=== PATIENT | female | born 1995 | race Caucasian/White ===

== ENCOUNTER 2019-10-04 15:35 | Emergency (ER) | payer OTHER, BC ==
--- NOTE | 2019-10-04 16:08 | EDM.PDOC ---
ED HPI GENERAL MEDICAL PROBLEM - General Chief Complaint: Lower Extremity Injury/Pain Stated Complaint: FOOT PAIN Time Seen by Provider: 10/04/19 15:42 Source of Information: Reports: Patient History Limitations: Reports: No Limitations - History of Present Illness INITIAL COMMENTS - FREE TEXT/NARRATIVE: HISTORY AND PHYSICAL: History of present illness: Patient is a 24-year-old female who presents to the ED today with concern of right foot pain over the past several days. Patient states she did not injure the foot and she cannot think of what would cause the pain. Patient states the pain is worse initially in the morning right when she stands on her feet and feels as if the arch of her foot is painful. Patient denies any trauma or injury to the foot. Patient denies any other symptoms or concerns. Patient denies fever, chills, chest pain, shortness of breath, or cough. Denies headache, neck stiff ness, change in vision, syncope, or near syncope. Denies nausea, vomiting, abdominal pain, diarrhea, constipation, or dysuria. Has not noted any blood in urine or stool. Patient has been eating and drinking appropriately. Review of systems: As per history of present illness and below otherwise all systems reviewed and negative. Past medical history: As per history of present illness and as reviewed below otherwise noncontributory. Surgical history: As per history of present illness and as reviewed below otherwise noncontributory. Social history: See social history for further information Family history: As per history of present illness and as reviewed below otherwise noncontributory. Physical exam: General: Patient is alert, oriented, and in no acute distress. Patient sitting comfortably on exam table. HEENT: Atraumatic, normocephalic, pupils equal and reactive bilaterally, negative for conjunctival pallor or scleral icterus, mucous membranes moist, TMs normal bilaterally, throat clear, neck supple, nontender, trachea midline. No drooling or trismus noted. No meningeal signs. No hot potato voice noted. Lungs: Clear to auscultation, breath sounds equal bilaterally, chest nontender. Heart: S1S2, regular rate and rhythm without overt murmur Abdomen: Soft, nondistended, nontender. Negative for masses or hepatosplenomegaly. Negative for costovertebral tenderness. Pelvis: Stable nontender. Genitourinary: Deferred. Rectal: Deferred. Skin: Intact, warm, dry. No lesions or rashes noted. Extremities: Atraumatic, negative for cords or calf pain. Neurovascular unremarkable. Patient has full range of motion of complete bilateral lower extremities without pain or difficulty. Patient does have direct pain to palpation of the right plantar fascia with recreation of symptoms. DP/PT intact bilaterally with capillary refill <2 seconds. No erythema or edema of bilateral lower extremities. Neuro: Awake, alert, oriented. Cranial nerves II through XII unremarkable. Cerebellum unremarkable. Motor and sensory unremarkable throughout. Exam nonfocal. Notes: Discussed importance for follow-up with a primary care provider. Voices understanding and is agreeable to plan of care. Denies any further questions or concerns at this time. Diagnostics: Foot XR Therapeutics: None Prescription: None Impression: Plantars fasciitis, right Plan: 1. Rest, ice, elevate the affected extremity. You can apply ice 15 minutes on, 15 minutes off. 2. Tylenol and/or Ibuprofen as directed for pain management or discomfort. 3. Follow up with the primary care provider as discussed. Return to the ED as needed and as discussed. Definitive disposition and diagnosis as appropriate pending reevaluation and review of above. Right Foot Pain Score (Numeric/FACES): 8 - Related Data Allergies Allergy/AdvReac Type Severity Reaction Status Date / Time No Known Allergies Allergy Verified 10/04/19 15:50 Home Meds: Home Meds . [No Known Home Meds] 10/04/19 [History] Past Medical History - Past Health History Medical/Surgical History: Denies Medical/Surgical History - Infectious Disease History Infectious Disease History: Reports: Chicken Pox Social & Family History - Family History Family Medical History: Noncontributory - Tobacco Use Smoking Status *Q: Never Smoker - Caffeine Use Caffeine Use: Reports: Coffee - Recreational Drug Use Recreational Drug Use: No Review of Systems - Review of Systems Review Of Systems: Comprehensive ROS is negative, except as noted in HPI. ED EXAM, GENERAL - Physical Exam Exam: See Below (see dictation) Course - Vital Signs Last Recorded V/S: Last Vital Signs Temp 97.1 F 10/04/19 15:51 Pulse 107 H 10/04/19 15:51 Resp 17 10/04/19 15:51 BP 143/77 H 10/04/19 15:51 Pulse Ox 99 10/04/19 15:51 Departure - Departure Time of Disposition: 16:58 Disposition: Home, Self-Care 01 Clinical Impression: Plantar fasciitis of right foot - Discharge Information Referrals: PCP,None [Primary Care Provider] - Forms: ED Department Discharge Additional Instructions: The following information is given to patients seen in the emergency department who are being discharged to home. This information is to outline your options for follow-up care. We provide all patients seen in our emergency department with a follow-up referral. The need for follow-up, as well as the timing and circumstances, are variable depending upon the specifics of your emergency department visit. If you don't have a primary care physician on staff, we will provide you with a referral. We always advise you to contact your personal physician following an emergency department visit to inform them of the circumstance of the visit and for follow-up with them and/or the need for any referrals to a consulting specialist. The emergency department will also refer you to a specialist when appropriate. This referral assures that you have the opportunity for follow-up care with a specialist. All of these measure are taken in an effort to provide you with optimal care, which includes your follow-up. Under all circumstances we always encourage you to contact your private physician who remains a resource for coordinating your care. When calling for follow-up care, please make the office aware that this follow-up is from your recent emergency room visit. If for any reason you are refused follow-up, please contact the [facility] Emergency Department at and asked to speak to the emergency department charge nurse. [facility] [address] [place] [id number] [address] 1. Rest, ice, elevate the affected extremity. You can apply ice 15 minutes on, 15 minutes off. 2. Tylenol and/or Ibuprofen as directed for pain management or discomfort. 3. Follow up with the primary care provider as discussed. Return to the ED as needed and as discussed. Sepsis Event Note - Evaluation Sepsis Screening Result: No Definite Risk - Focused Exam Vital Signs: Vital Signs Temp Pulse Resp BP Pulse Ox 10/04/19 15:51 97.1 F 107 H 17 143/77 H 99 Date Exam was Performed: 10/04/19 Time Exam was Performed: 16:58
--- NOTE | 2019-10-04 16:56 | CR ---
Right foot: 2 views of the right foot pain. Comparison: No previous foot exam. No discrete fracture or other bony abnormality is seen. Impression: 1. No abnormality is appreciated on 2 view right foot exam. Diagnostic code #1 This report was dictated in Mountain Standard Time
== END 2019-10-04 17:14 | disposition home or self-care (01) ==
LOC: MW.ED 15:35
DX: M72.2 Plantar fascial fibromatosis (principal)
CPT/HCPCS: 73620-26-RT; 73620-RT; 99283-25

== ENCOUNTER 2020-01-15 19:50 | Emergency (ER) | payer OTHER, BC ==
--- NOTE | 2020-01-15 20:21 | EDM.PDOC ---
ED HPI GENERAL MEDICAL PROBLEM - General Chief Complaint: CARDIOPULMONARY TECHNICIAN Problem Stated Complaint: BLEEDING Time Seen by Provider: 01/15/20 20:20 Source of Information: Reports: Patient History Limitations: Reports: No Limitations - History of Present Illness INITIAL COMMENTS - FREE TEXT/NARRATIVE: HISTORY AND PHYSICAL: History of present illness: Patient is a 24-year-old female presents to the ED with complaint of vaginal bleeding in . Patient is . LMP November 27, approximately 6-7 weeks gestation. She states bleeding started this afternoon around 5pm. She states she passed a couple of clots. Bleeding subsided until she just gave a urine sample and passed another clot. She reports some cramping period like pain. She does have her first OB appointment scheduled for this coming Tuesday. Review of systems: As per history of present illness and below otherwise all systems reviewed and negative. Past medical history: As per history of present illness and as reviewed below otherwise noncontributory. Surgical history: As per history of present illness and as reviewed below otherwise noncontributory. Social history: No reported history of drug or alcohol abuse. Family history: As per history of present illness and as reviewed below otherwise noncontributory. Physical exam: General: Patient sitting comfortably in no acute distress and nontoxic appearing HEENT: Atraumatic, normocephalic, pupils reactive, negative for conjunctival pallor or scleral icterus, mucous membranes moist, throat clear, neck supple, nontender, trachea midline. No meningeal signs. Lungs: Clear to auscultation, breath sounds equal bilaterally, chest nontender. Heart: S1S2, regular, negative for clicks, rubs, or overt murmur. Abdomen: Soft, nondistended, nontender. No point tenderness on exam. Negative for masses or hepatosplenomegaly. Negative for costovertebral tenderness. No rigidity, rebound, guarding. Pelvis: Stable nontender. Genitourinary: moderate amount of blood in the vaginal vault. Cervical OS is closed. No adnexal tenderness. Rectal: Deferred. Extremities: Atraumatic, negative for cords or calf pain. Neurovascular unremarkable. Neuro: Awake, alert, oriented. Cranial nerves II through XII unremarkable. Cerebellum unremarkable. Motor and sensory unremarkable throughout. Exam nonfocal. Notes: Signed out to Dr. Vidal at 2200 for follow up on ultrasound. Diagnostics: HCG quant, ABO/RH, CBC Therapeutics: none Prescriptions: Augmentin Impression: Threatened , UTI Plan: Pelvic rest as instructed Drink plenty of fluids and alternate tylenol and motrin as needed Follow up with CARDIOPULMONARY TECHNICIAN for repeat labs in 48 hours Return to ED as needed as discussed Definitive disposition and diagnosis as appropriate pending reevaluation and review of above. Lower Abdominal Pain Score (Numeric/FACES): 6 - Related Data Allergies Allergy/AdvReac Type Severity Reaction Status Date / Time No Known Allergies Allergy Verified 01/15/20 20:03 Home Meds: Home Meds . [No Known Home Meds] 10/04/19 [History] Past Medical History - Past Health History Medical/Surgical History: Denies Medical/Surgical History - Infectious Disease History Infectious Disease History: Reports: Chicken Pox Social & Family History - Family History Family Medical History: Noncontributory - Tobacco Use Smoking Status *Q: Never Smoker Second Hand Smoke Exposure: No - Caffeine Use Caffeine Use: Reports: None - Recreational Drug Use Recreational Drug Use: No ED ROS GENERAL - Review of Systems Review Of Systems: Comprehensive ROS is negative, except as noted in HPI. ED EXAM - Physical Exam Exam: See Below (see dictation) Course - Vital Signs Last Recorded V/S: Last Vital Signs Temp 97.8 F 01/15/20 19:57 Pulse 87 01/15/20 21:53 Resp 17 01/15/20 21:53 BP 136/78 01/15/20 21:53 Pulse Ox 99 01/15/20 21:53 - Orders/Labs/Meds Orders: Active Orders 24 hr Category Date Time Status OB 1st Tri Sgl 1st Gest [US] Stat Exams 01/15/20 21:35 Ordered ABO/RH TYPE [BBK] Stat Lab 01/15/20 20:20 Ordered CBC WITH AUTO DIFF [HEME] Stat Lab 01/15/20 20:20 Ordered HCG QUANTITATIVE [CHEM] Stat Lab 01/15/20 20:20 Ordered UA RFX TAO AND CULT IF INDIC [URIN] Stat Lab 01/15/20 20:11 Received Labs: Laboratory Tests 01/15/20 01/15/20 01/15/20 Range/Units 20:11 20:11 20:42 WBC 9.01 (4.0-11.0) K/uL RBC 4.39 (4.30-5.90) M/uL Hgb 13.4 (12.0-16.0) g/dL Hct 40.2 (36.0-46.0) % MCV 91.6 (80.0-98.0) fL MCH 30.5 (27.0-32.0) pg MCHC 33.3 (31.0-37.0) g/dL RDW Std Deviation 43.4 (28.0-62.0) fl RDW Coeff of Moncho 13 (11.0-15.0) % Plt Count 179 (150-400) K/uL MPV 9.80 (7.40-12.00) fL Neut % (Auto) 76.3 (48.0-80.0) % Lymph % (Auto) 17.5 (16.0-40.0) % Dodge % (Auto) 5.9 (0.0-15.0) % Eos % (Auto) 0.2 (0.0-7.0) % Baso % (Auto) 0.1 (0.0-1.5) % Neut # (Auto) 6.9 H (1.4-5.7) K/uL Lymph # (Auto) 1.6 (0.6-2.4) K/uL Dodge # (Auto) 0.5 (0.0-0.8) K/uL Eos # (Auto) 0.0 (0.0-0.7) K/uL Baso # (Auto) 0.0 (0.0-0.1) K/uL Nucleated RBC % 0.0 /100WBC Nucleated RBCs # 0 K/uL HCG, Quant mIU/mL Urine Color RED Urine Appearance SLT CLOUDY Urine pH 5.5 (5.0-8.0) Ur Specific [place] >= 1.030 (1.001-1.035) Urine Protein 30 H (NEGATIVE) mg/dL Urine Glucose (UA) NEGATIVE (NEGATIVE) mg/dL Urine Ketones NEGATIVE (NEGATIVE) mg/dL Urine Occult Blood LARGE H (NEGATIVE) Urine Nitrite POSITIVE H (NEGATIVE) Urine Bilirubin SMALL H (NEGATIVE) Urine Ictotest NEGATIVE Urine Urobilinogen 0.2 (<2.0) EU/dL Ur Leukocyte Esterase TRACE H (NEGATIVE) Urine RBC 450-500 (0-2/HPF) Urine WBC 2-3 (0-5/HPF) Ur Epithelial Cells NOT SEEN (NONE-FEW) Amorphous Sediment FEW (NEGATIVE) Urine Bacteria FEW (NEGATIVE) Urine Mucus FEW (NONE-MOD) Urine HCG, Qual POSITIVE (NEGATIVE) Blood Type 01/15/20 01/15/20 Range/Units 20:42 20:42 WBC (4.0-11.0) K/uL RBC (4.30-5.90) M/uL Hgb (12.0-16.0) g/dL Hct (36.0-46.0) % MCV (80.0-98.0) fL MCH (27.0-32.0) pg MCHC (31.0-37.0) g/dL RDW Std Deviation (28.0-62.0) fl RDW Coeff of Moncho (11.0-15.0) % Plt Count (150-400) K/uL MPV (7.40-12.00) fL Neut % (Auto) (48.0-80.0) % Lymph % (Auto) (16.0-40.0) % Dodge % (Auto) (0.0-15.0) % Eos % (Auto) (0.0-7.0) % Baso % (Auto) (0.0-1.5) % Neut # (Auto) (1.4-5.7) K/uL Lymph # (Auto) (0.6-2.4) K/uL Dodge # (Auto) (0.0-0.8) K/uL Eos # (Auto) (0.0-0.7) K/uL Baso # (Auto) (0.0-0.1) K/uL Nucleated RBC % /100WBC Nucleated RBCs # K/uL HCG, Quant 2604.0 mIU/mL Urine Color Urine Appearance Urine pH (5.0-8.0) Ur Specific [place] (1.001-1.035) Urine Protein (NEGATIVE) mg/dL Urine Glucose (UA) (NEGATIVE) mg/dL Urine Ketones (NEGATIVE) mg/dL Urine Occult Blood (NEGATIVE) Urine Nitrite (NEGATIVE) Urine Bilirubin (NEGATIVE) Urine Ictotest Urine Urobilinogen (<2.0) EU/dL Ur Leukocyte Esterase (NEGATIVE) Urine RBC (0-2/HPF) Urine WBC (0-5/HPF) Ur Epithelial Cells (NONE-FEW) Amorphous Sediment (NEGATIVE) Urine Bacteria (NEGATIVE) Urine Mucus (NONE-MOD) Urine HCG, Qual (NEGATIVE) Blood Type O POSITIVE Departure - Departure Time of Disposition: 22:07 Disposition: Home, Self-Care 01 Condition: Good Clinical Impression: Threatened miscarriage, UTI (urinary tract infection) - Discharge Information Referrals: PCP,None [Primary Care Provider] - Forms: ED Department Discharge Additional Instructions: The following information is given to patients seen in the emergency department who are being discharged to home. This information is to outline your options for follow-up care. We provide all patients seen in our emergency department with a follow-up referral. The need for follow-up, as well as the timing and circumstances, are variable depending upon the specifics of your emergency department visit. If you don't have a primary care physician on staff, we will provide you with a referral. We always advise you to contact your personal physician following an emergency department visit to inform them of the circumstance of the visit and for follow-up with them and/or the need for any referrals to a consulting specialist. The emergency department will also refer you to a specialist when appropriate. This referral assures that you have the opportunity for follow-up care with a specialist. All of these measure are taken in an effort to provide you with optimal care, which includes your follow-up. Under all circumstances we always encourage you to contact your private physician who remains a resource for coordinating your care. When calling for follow-up care, please make the office aware that this follow-up is from your recent emergency room visit. If for any reason you are refused follow-up, please contact the [facility] Emergency Department at and asked to speak to the emergency department charge nurse. [facility] [address] [place] [id number] Pelvic rest as instructed Drink plenty of fluids and alternate tylenol and motrin as needed Follow up with CARDIOPULMONARY TECHNICIAN for repeat labs in 48 hours Return to ED as needed as discussed Sepsis Event Note - Evaluation Sepsis Screening Result: No Definite Risk - Focused Exam Vital Signs: Vital Signs Temp Pulse Resp BP Pulse Ox 01/15/20 21:53 87 17 136/78 99 01/15/20 19:57 97.8 F 109 H 18 132/72 98 Date Exam was Performed: 01/15/20 Time Exam was Performed: 22:13 - My Orders Last 24 Hours: My Active Orders 01/15/20 20:11 UA RFX TAO AND CULT IF INDIC [URIN] Stat 01/15/20 20:20 ABO/RH TYPE [BBK] Stat CBC WITH AUTO DIFF [HEME] Stat HCG QUANTITATIVE [CHEM] Stat 01/15/20 21:35 OB 1st Tri Sgl 1st Gest [US] Stat - Assessment/Plan Last 24 Hours: My Active Orders 01/15/20 20:11 UA RFX TAO AND CULT IF INDIC [URIN] Stat 01/15/20 20:20 ABO/RH TYPE [BBK] Stat CBC WITH AUTO DIFF [HEME] Stat HCG QUANTITATIVE [CHEM] Stat 01/15/20 21:35 OB 1st Tri Sgl 1st Gest [US] Stat
--- NOTE | 2020-01-15 22:59 | US ---
INDICATION: Pelvic pain during , bleeding, cramping TECHNIQUE: Ultrasound pelvis transvaginal COMPARISON: None FINDINGS: Uterus: 6.8 centimeter x 3.1 centimeter x 3.5 centimeter. Normal echotexture of the myometrium. No masses. Endometrium: Transvaginal the endometrium measures 10 s mm in thickness. No sign of endometrial mass or fluid. Right ovary: 2.1 centimeter x 2.5 centimeter x 1.8 centimeter. No ovarian or adnexal masses. Normal arterial and venous blood flow. Left ovary: 2.8 centimeter x 1.7 centimeter x 2.4 centimeter. No ovarian or adnexal masses. Normal arterial and venous blood flow. Cul-de-sac: No significant free fluid. IMPRESSION: Thickened endometrium at 10 millimeters. No evidence of intrauterine gestational sac. No evidence of fluid or debris in the endometrial canal. Sonographically normal ovaries and adnexa. No significant free fluid. Dictated by Ernesto Olivares MD @ 01/15/2020 10:58:39 PM Dictated by: Ernesto Olivares MD @ 01/15/2020 22:58:45 (Electronically Signed)
== END 2020-01-15 23:15 | disposition home or self-care (01) ==
LOC: MW.ED 19:50
DX: O20.0 Threatened abortion (principal); O23.41 Unspecified infection of urinary tract in pregnancy, first trimester; Z3A.01 Less than 8 weeks gestation of pregnancy
CPT/HCPCS: 36415; 76801; 76801-26; 81001; 81003; 81025; 84702; 85025; 86900; 86901; 87086; 99283; 99284-25